=== PATIENT | male | born 1980 | race Caucasian/White ===

== ENCOUNTER 2024-01-13 17:15 | Emergency (ER) | payer BC ==
[2024-01-13] MEDS ORDERED: ACETAMINOPHEN 500 MG TAB ONE (17:34)
[2024-01-13 17:49] LABS: Absolute Eosinophils 0.1 K/uL (0-0.5); Absolute Monocytes 0.5 K/uL (0.1-1.3); Absolute Neutrophil 2.5 K/uL (1.8-8.0); Eosinophils % 2.8 % (0-4.4); Hematocrit 33.9 % (39.6-49.0); Hemoglobin 10.6 g/dL (13.6-17.9); Lymphocytes % 23.4 % (15.3-44.8); MCH 24.1 pg (27.0-35.0); MCHC 31.1 g/dL (32.0-36.0); MCV 77.3 fL (80-100); Monocytes % 12.3 % (3.3-12.3); Neutrophils % 60.5 % (41.7-73.7); Nucleated Red Blood Cells % 0.1 % (0-0); Platelets 259 thou/uL (152-406); RBC Red Blood Cell Count 4.38 M/uL (4.33-5.43); Red Cell Distribution Width 15.9 % (12.1-15.2)
[2024-01-13 18:09] LABS: ALT/SGPT 30 U/L (16-61); AST/SGOT 22 U/L (15-37); Albumin 3.1 g/dL (3.4-5.0); Albumin/Globulin Ratio 0.7 (1.1-1.8); Alkaline Phosphatase 112 U/L (45-117); Anion Gap 6.8 mEq/L (5.0-15.0); BUN Blood Urea Nitrogen 12 mg/dL (7-18); Bicarbonate 28 mEq/L (21-32); Bilirubin Total 0.3 mg/dL (0.2-1.0); Globulin 4.4 g/dL (2.3-3.5); Glomerular Filtration Rate 77 ml/min (=/>90); Glucose Level 106 mg/dL (74-106); Magnesium 2.3 mg/dL (1.6-2.4); Potassium 3.8 mEq/L (3.5-5.1); Protein, Total 7.5 g/dL (6.4-8.2); Sodium Level 140 mEq/L (136-145); Troponin High Sensitivity 6.7 pg/mL (<58.9)
--- NOTE | 2024-01-13 18:10 | RAD REPORT ---
EXAM DESCRIPTION: RAD - Chest Single View - 01/13/2024 6:01 pm CLINICAL HISTORY: CHEST PAIN Chest pain. COMPARISON: No comparisons FINDINGS: Portable technique limits examination quality. The lungs are grossly clear. The heart is normal in size. No displaced fractures. IMPRESSION: No acute intrathoracic process suspected.
[2024-01-13 18:13] LABS: Bilirubin Direct < 0.2 mg/dL (0-0.2); Bilirubin Indirect, Calculated 0.1 mg/dL (0.2-0.8)
--- NOTE | 2024-01-13 19:25 | ER ---
Nurse's Notes [facility] Name: Sal Hubbard Age: 43 yrs Sex: Male : 1980 Arrival Date: 01/13/2024 Time: 17:15 Bed 7 Private MD: Diagnosis: Chest pain, unspecified Presentation: 01/12 17:20 Chief complaint: Patient states: left sided chest pain X 2 days. Coronavirus screen: At iw this time, the client does not indicate any symptoms associated with coronavirus-19. Ebola Screen: Patient negative for fever greater than or equal to 101.5 degrees Fahrenheit, and additional compatible Ebola Virus Disease symptoms Patient denies exposure to infectious person. Patient denies travel to an Ebola-affected area in the 21 days before illness onset. Initial Sepsis Screen: Does the patient meet any 2 criteria? No. Patient's initial sepsis screen is negative. Does the patient have a suspected source of infection? No. Patient's initial sepsis screen is negative. Risk Assessment: Do you want to hurt yourself or someone else? Patient reports no desire to harm self or others. Onset of symptoms was January 11, 2024. 17:20 Method Of Arrival: Ambulatory iw 17:20 Acuity: MEGHAN 3 iw Historical: - Allergies: 17:21 No Known Allergies; iw - PMHx: 17:21 Hypertensive disorder; Anemia; iw - PSHx: 17:21 Cholecystectomy; iw - Immunization history:: Adult Immunizations not up to date. - Infectious Disease History:: Denies. - Social history:: Smoking status: Patient/guardian denies using tobacco, the patient reports quitting approximately 21 years ago. - Family history:: not pertinent. Screenin:33 [facility] ED Fall Risk Assessment (Adult) History of falling in the last 3 months, cp4 including since admission No falls in past 3 months (0 pts) Confusion or Disorientation No (0 pts) Intoxicated or Sedated No (0 pts) Impaired Gait No (0 pts) Mobility Assist Device Used No (0 pt) Altered Elimination No (0 pt) Score/Fall Risk Level 0 - 2 = Low Risk Oriented to surroundings, Maintained a safe environment, Assessed \T\ reinforced patient's understanding of fall precautions, Hourly rounding (assess needs \T\ fall precautionary measures) done. Abuse screen: Denies threats or abuse. Nutritional screening: No deficits noted. Tuberculosis screening: No symptoms or risk factors identified. Assessment: 17:48 Reassessment: Patient appears in no apparent distress at this time. Patient and/or db family updated on plan of care and expected duration. Pain level reassessed. Patient is alert, oriented x 3, equal unlabored respirations, skin warm/dry/pink. General: Appears in no apparent distress. comfortable, Behavior is calm, cooperative. Pain: Complains of pain in chest Pain does not radiate. Pain: Pain began gradually. Neuro: Level of Consciousness is awake, alert, obeys commands, Oriented to person, place, time, situation. Cardiovascular: Reports chest pain. Vital Signs: 17:20 BP 157 / 71; Pulse 93; Resp 16; Temp 98.5; Pulse Ox 99% on R/A; Weight 166.92 kg; iw Height 5 ft. 10 in. ; Pain 3/10; 19:15 BP 158 / 73; Pulse 83; Resp 16; Pulse Ox 99% on R/A; km8 17:20 Body Mass Index 52.80 (166.92 kg, 177.8 cm) iw 17:20 Pain Scale: Adult iw ED Course: 17:18 Patient arrived in ED. rg4 17:19 Girma Alaniz MD is Attending Physician. rt 17:21 Triage completed. iw 17:22 Arm band placed on. iw 17:26 Dorene Choudhary is Primary Nurse. cp4 17:35 Initial lab(s) drawn, by me, sent to lab. Inserted saline lock: 20 gauge in right db antecubital area, using aseptic technique. Blood collected. 17:48 Patient has correct armband on for positive identification. Bed in low position. Call db light in reach. Side rails up X 1. Client placed on continuous cardiac and pulse oximetry monitoring. NIBP monitoring applied. hris analyst on. Pulse ox on. NIBP on. 18:03 XRAY Chest (1 view) In Process Unspecified. EDMS 19:29 Provided Education on: d/c teaching. km8 19:29 No provider procedures requiring assistance completed. IV discontinued, intact, km8 bleeding controlled, No redness/swelling at site. Pressure dressing applied. 19:33 O2 via room air. cp4 Administered Medications: 17:55 Drug: Acetaminophen PO 1000 mg PO once Route: PO; cp4 Outcome: 19:25 Discharge ordered by . rt 19:33 Discharged to home ambulatory, km8 19:33 Condition: good 19:33 Discharge instructions given to patient, Instructed on discharge instructions, follow up and referral plans. Demonstrated understanding of instructions, follow-up care, 19:34 Patient left the ED. km8 Signatures: Dispatcher [employer] EDMarina Mckeon RN RN iw Irena Perdomo rg4 Shannon Buckley RN RN db Girma Alaniz MD MD rt Dorene Choudhary cp4 Michaelle Emanuel RN RN km8 Corrections: (The following items were deleted from the chart) 17:22 17:20 Pulse 93bpm; Resp 16bpm; Pulse Ox 99% RA; Temp 98.5F; 166.92 kg; Height 5 ft. 10 iw in.; BMI: 52.8; Pain 3/10, Adult; iw
--- NOTE | 2024-01-13 19:25 | EDPHYS ---
Physician Documentation [facility] Name: Sal Hubbard Age: 43 yrs Sex: Male : 1980 Arrival Date: 01/13/2024 Time: 17:15 Bed 7 Private MD: ED Physician Girma Alaniz HPI: 01/12 17:34 This 43 yrs old Male presents to ER via Ambulatory with complaints of Chest Pain. rt 17:34 Patient presents to the ED with about 3 days of a left-sided chest pain. Patient rt attributes this to when he was moving around and working on a boat. It is worse when he takes a deep breath. He did take Tylenol to some relief. Reports that the pain is are mild right now. Denies exertional component. Denies other acute complaints, symptoms are moderate in severity, no other aggravating or elevating factors.. Historical: - Allergies: 17:21 No Known Allergies; iw - PMHx: 17:21 Hypertensive disorder; Anemia; iw - PSHx: 17:21 Cholecystectomy; iw - Immunization history:: Adult Immunizations not up to date. - Infectious Disease History:: Denies. - Social history:: Smoking status: Patient/guardian denies using tobacco, the patient reports quitting approximately 21 years ago. - Family history:: not pertinent. ROS: 17:35 Constitutional: Negative for fever, chills, and weight loss, Respiratory: Negative for rt shortness of breath, cough, wheezing, and pleuritic chest pain, Abdomen/GI: Negative for abdominal pain, nausea, vomiting, diarrhea, and constipation, MS/Extremity: Negative for injury and deformity, Skin: Negative for injury, rash, and discoloration, Neuro: Negative for headache, weakness, numbness, tingling, and seizure, Psych: Negative for depression, anxiety, suicide ideation, homicidal ideation, and hallucinations, 17:35 Cardiovascular: Positive for chest pain, Negative for edema, Exam: 17:35 Constitutional: This is a well developed, well nourished patient who is awake, alert, rt and in no acute distress. Head/Face: Normocephalic, atraumatic. Cardiovascular: Regular rate and rhythm with a normal S1 and S2. No gallops, murmurs, or rubs. Normal PMI, no JVD. No pulse deficits. Respiratory: Lungs have equal breath sounds bilaterally, clear to auscultation and percussion. No rales, rhonchi or wheezes noted. No increased work of breathing, no retractions or nasal flaring. Abdomen/GI: Soft, non-tender, with normal bowel sounds. No distension or tympany. No guarding or rebound. No evidence of tenderness throughout. Skin: Warm, dry with normal turgor. Normal color with no rashes, no lesions, and no evidence of cellulitis. MS/ Extremity: Pulses equal, no cyanosis. Neurovascular intact. Full, normal range of motion. Neuro: Awake and alert, GCS 15, oriented to person, place, time, and situation. Cranial nerves II-XII grossly intact. Motor strength 5/5 in all extremities. Sensory grossly intact. Cerebellar exam normal. Normal gait. 17:35 Chest/axilla: Tenderness to palpation over the left anterior chest, no crepitus. 17:35 ECG was reviewed by the Attending Physician. Vital Signs: 17:20 BP 157 / 71; Pulse 93; Resp 16; Temp 98.5; Pulse Ox 99% on R/A; Weight 166.92 kg; iw Height 5 ft. 10 in. ; Pain 3/10; 19:15 BP 158 / 73; Pulse 83; Resp 16; Pulse Ox 99% on R/A; km8 17:20 Body Mass Index 52.80 (166.92 kg, 177.8 cm) iw 17:20 Pain Scale: Adult iw MDM: 17:23 Patient medically screened. rt 19:42 Differential diagnosis: Chest wall pain, acute coronary syndrome, pneumonia, rt pneumothorax. HEART Score: History: Slightly Suspicious (0), ECG: Normal (0), Age: < or = 45 years (0), Risk Factors: 1 or 2 risk factors (1), Troponin: < or = 1 x Normal Limit (0), Total Score = 1. Data reviewed: vital signs, nurses notes, lab test result(s), EKG, radiologic studies. Consideration of Admission/Observation Escalation of care including admission/observation considered. Low heart score, symptoms most consistent with chest wall pain. Given chronicity of symptoms, 1 set of enzymes is sufficient to rule out an acute coronary syndrome. Patient stable for outpatient care.. I considered the following discharge prescriptions or medication management in the emergency department Medications were administered in the Emergency Department. See NOV. Independent interpretation of the following test(s) in the Emergency Department X-Ray: My interpretation is No pneumonia seen on interpretation of x-ray images. Test considered but Not performed: CT: Low suspicion for pulmonary embolism, PE RC negative, does not require CT angiogram. Care significantly affected by the following chronic conditions: Hypertension. Counseling: I had a detailed discussion with the patient and/or guardian regarding the historical points, exam findings, and any diagnostic results supporting the discharge/admit diagnosis, lab results, radiology results, the need for outpatient follow up, to return to the emergency department if symptoms worsen or persist or if there are any questions or concerns that arise at home. Response to treatment: the patient's symptoms have markedly improved after treatment. 01/12 17:30 Order name: Basic Metabolic Panel; Complete Time: 18:14 rt 01/12 17:30 Order name: CBC with Diff; Complete Time: 18:11 rt 01/12 17:30 Order name: LFT's; Complete Time: 18:14 rt 01/12 17:30 Order name: Magnesium; Complete Time: 18:14 rt 01/12 17:30 Order name: Troponin HS; Complete Time: 18:14 rt 01/12 17:30 Order name: XRAY Chest (1 view); Complete Time: 18:11 rt 01/12 17:30 Order name: Cardiac monitoring; Complete Time: 17:33 rt 01/12 17:30 Order name: EKG - Nurse/Tech; Complete Time: 17:33 rt 01/12 17:30 Order name: IV Saline Lock; Complete Time: 17:47 rt 01/12 17:30 Order name: Labs collected and sent; Complete Time: 17:47 rt 01/12 17:30 Order name: O2 Per Protocol; Complete Time: 17:33 rt 01/12 17:30 Order name: O2 Sat Monitoring; Complete Time: 17:33 rt EC:35 Rate is 82 beats/min. Rhythm is regular, Normal Sinus Rhythm with No ectopy. QRS [place] rt is Normal. [place] interval is normal. QRS interval is normal. QT interval is normal. No Q waves. T waves are Normal. No ST changes noted. Administered Medications: 17:55 Drug: Acetaminophen PO 1000 mg PO once Route: PO; cp4 Disposition Summary: 01/13/24 19:25 Discharge Ordered Notes: Location: Home rt Problem: new rt Symptoms: have improved rt Condition: Stable rt Diagnosis - Chest pain, unspecified rt Followup: rt - With: Private Physician - When: 2 - 3 days - Reason: Discharge Instructions: - Discharge Summary Sheet rt - Nonspecific Chest Pain, Adult rt - Chest Wall Pain rt Forms: - Medication Reconciliation Form rt - Antibiotic Education rt - Prescription Opioid Use rt - Patient Portal Instructions rt - Leadership Thank You Letter rt Signatures: Dispatcher [employer] Marina Dyer RN RN iw Girma Alaniz MD MD rt Dorene Choudhary cp4 Corrections: (The following items were deleted from the chart) 17:35 17:34 Patient presents to the ED with about 3 days of a left-sided chest pain. Patient rt attributes this to when he was moving around.. rt
[2024-01-13 20:15] VITALS: BP 158/73; TEMP 98.5; O2SAT 99
--- NOTE | 2024-01-14 14:01 | EKG ---
Test Date: 2024-01-13 Test Time: 17:29:20 Communications Station Manager: ALVINA MEASUREMENT RESULTS: Intervals: Rate: 82 CO: 148 QRSD: 92 QT: 370 QTc: 432 [place]: P: 77 CO: 148 QRS: 31 T: 51 INTERPRETIVE STATEMENTS: Normal sinus rhythm Normal ECG No previous ECG available for comparison Electronically Signed On 01-14-24 13:59:29 CDT by Celestine Banerjee
== END 2024-01-13 19:34 | disposition home or self-care (01) ==
LOC: ER 17:15
DX: R07.9 Chest pain, unspecified (principal); I10 Essential (primary) hypertension
CPT/HCPCS: 36415; 71045; 80048; 80076; 83735; 84484; 85025; 93005